=== PATIENT | male | born 1965 | race African-American/Black ===

== ENCOUNTER 2017-08-05 11:14 | Emergency (ER) | payer MEDICAID, OTHER ==
[~2017-08-05] VITALS: Ht 190.5 cm; Wt 118.0 kg
[~2017-08-05 11:14] MED LIST: AMLO5TAB88 PO; PROT40 PO; SUCR1ORA2 PO
[2017-08-05] MEDS ORDERED: AMLODIPINE 5MG TABLET PO ONE (12:00)
[2017-08-05 12:29] LABS: BASOPHILS % 1.1 % (0.0-2.0); EOSINOPHILS % 1.1 % (0.0-5.0); HEMATOCRIT. 40.6 % (42.0-52.0); HEMOGLOBIN. 14.3 g/dL (14.0-18.0); LYMPHOCYTES % 33.3 % (20.0-50.0); MEAN CORPUSCULAR HEMOGLOBIN 29.6 pg (28.0-32.0); MEAN CORPUSCULAR VOLUME 83.6 fL (80.0-94.0); MEAN PLATELET VOLUME 7.9 fl (7.4-10.4); MONOCYTES % 7.1 % (2.0-8.0); NEUTROPHILS % 57.4 % (40.0-76.0); PLATELET 174 x1000/uL (130-400); RED BLOOD CELL COUNT 4.85 mill/uL (4.7-6.1); RED CELL DISTRIBUTION WIDTH 13.7 % (11.6-14.6)
[2017-08-05 12:44] LABS: CARBON DIOXIDE 25 mEq/L (21-32); CHLORIDE 107 mEq/L (98-107)
[2017-08-05 14:55] VITALS: BP 128/69
== END 2017-08-05 15:03 | disposition home or self-care (01) ==
LOC: ER 13:04
DX: I16.1 Hypertensive emergency (principal); I44.0 Atrioventricular block, first degree; Z91.14 Patient's other noncompliance with medication regimen
CPT/HCPCS: 36415; 80053; 85025; 93005; 99285

== ENCOUNTER 2018-01-01 01:12 | Emergency (ER) | payer MEDICAID ==
[~2018-01-01] VITALS: Ht 190.5 cm; Wt 120.0 kg
[2018-01-01 03:49] LABS: BASOPHILS % 1.2 % (0.0-2.0); EOSINOPHILS % 2.4 % (0.0-5.0); HEMATOCRIT. 39.2 % (42.0-52.0); HEMOGLOBIN. 13.8 g/dL (14.0-18.0); LYMPHOCYTES % 33.5 % (20.0-50.0); MEAN CORPUSCULAR HEMOGLOBIN 29.4 pg (28.0-32.0); MEAN CORPUSCULAR VOLUME 83.6 fL (80.0-94.0); MONOCYTES % 8.2 % (2.0-8.0); NEUTROPHILS % 54.7 % (40.0-76.0); RED BLOOD CELL COUNT 4.69 mill/uL (4.7-6.1); RED CELL DISTRIBUTION WIDTH 14.3 % (11.6-14.6)
[2018-01-01 03:52] LABS: CHLORIDE 106 mEq/L (98-107)
[2018-01-01 04:29] LABS: PLATELET 226 x1000/uL (130-400)
[2018-01-01 05:18] VITALS: BP 141/97
== END 2018-01-01 05:19 | disposition home or self-care (01) ==
LOC: ER 01:12
DX: J40 Bronchitis, not specified as acute or chronic (principal); I10 Essential (primary) hypertension; F12.10 Cannabis abuse, uncomplicated
CPT/HCPCS: 36415; 71045; 80048; 83880; 84484; 85025; 99285

== ENCOUNTER 2018-04-07 01:05 | Emergency (ER) | payer MEDICAID ==
[~2018-04-07] VITALS: Ht 193 cm; Wt 122.0 kg
[2018-04-07] MEDS ORDERED: METOCLOPRAMIDE HCL 10MG/2ML VIAL IV ONE (04:30)
[2018-04-07] MEDS ORDERED: DIPHENHYDRAMINE 50MG/ML VIAL IV ONE (04:30)
[2018-04-07] MEDS ORDERED: SODIUM CHLORIDE 0.9% 1,000 ML IV ONE (04:30)
[2018-04-07 04:44] LABS: CLARITY URINE CLEAR (CLEAR); COLOR URINE YELLOW (YELLOW); KETONES URINE NEGATIVE (NEGATIVE); LEUKOCYTE ESTERASE URINE NEGATIVE (NEGATIVE); NITRITE URINE NEGATIVE (NEGATIVE); OCCULT BLOOD URINE NEGATIVE (NEGATIVE); PH URINE 5.5 (4.5-8.0); PROTEIN URINE NEGATIVE (NEGATIVE); SPECIFIC GRAVITY URINE 1.018 (1.005-1.030); UROBILINOGEN URINE 0.2 E.U./dL (0.2-1.0)
[2018-04-07 05:00] LABS: BASOPHILS % 0.7 % (0.0-2.0); EOSINOPHILS % 1.4 % (0.0-5.0); HEMATOCRIT. 38.7 % (42.0-52.0); HEMOGLOBIN. 13.1 g/dL (14.0-18.0); MEAN CORPUSCULAR VOLUME 85.5 fL (80.0-94.0); MEAN PLATELET VOLUME 8.4 fl (7.4-10.4); MONOCYTES % 6.2 % (2.0-8.0); NEUTROPHILS % 60.7 % (40.0-76.0); PLATELET 180 x1000/uL (130-400); RED BLOOD CELL COUNT 4.53 mill/uL (4.7-6.1); RED CELL DISTRIBUTION WIDTH 14.3 % (11.6-14.6)
[2018-04-07 05:21] VITALS: BP 125/77
== END 2018-04-07 07:34 | disposition home or self-care (01) ==
LOC: ER 01:05
DX: K92.1 Melena (principal); R51 Headache; I10 Essential (primary) hypertension; D64.9 Anemia, unspecified; F12.10 Cannabis abuse, uncomplicated
CPT/HCPCS: 36415; 81003; 85025; 93005; 96374; 96375; 99285; J1200; J2765; J7030; Z7610

== ENCOUNTER 2020-10-08 02:22 | Emergency (ER) | payer MEDICAID | END 2020-10-08 03:15 | disposition left against medical advice (07) | LOC: ER 02:34 | DX: R07.9 Chest pain, unspecified (principal); Z53.21 Procedure and treatment not carried out due to patient leaving prior to being seen by health care provider ==